=== PATIENT | male | born 1990 | race Two or more races ===

== ENCOUNTER 2020-03-16 22:36 | Emergency (ER) | payer MEDICAID, OTHER ==
[~2020-03-16] VITALS: Ht 180.3 cm; Wt 122.5 kg
[2020-03-16] MEDS ORDERED: ACETAMINOPHEN 325 MG TAB PO ONE (23:00)
[2020-03-16 23:49] VITALS: BP 130/78
[2020-03-17] MEDS ORDERED: IBUPROFEN 800 MG TAB PO ONE
== END 2020-03-17 00:29 | disposition home or self-care (01) ==
LOC: ER 22:36
DX: S02.5XXA Fracture of tooth (traumatic), initial encounter for closed fracture (principal); K04.7 Periapical abscess without sinus; R42 Dizziness and giddiness; Z88.0 Allergy status to penicillin; X58.XXXA Exposure to other specified factors, initial encounter; Y93.89 Activity, other specified; Y92.89 Other specified places as the place of occurrence of the external cause; Y99.8 Other external cause status